=== PATIENT | male | born 1995 | race Caucasian/White ===

== ENCOUNTER 2016-11-28 20:01 | Emergency (ER) | payer OTHER ==
[~2016-11-28] VITALS: Ht 177.8 cm; Wt 141.2 kg
[~2016-11-28 20:01] MED LIST: DENIES
[2016-11-28 20:15] VITALS: Ht 177.8 cm; Wt 141.2 kg
--- NOTE | 2016-11-28 21:28 | ERD ---
ER Documentation Chief Complaint Date/Time DATE: 11/28/16 TIME: 21:26 Chief Complaint congestion, head fullness, ear pain few days HPI 21 y/o male presents to ED for multiple complaints including headache, ear pain , chest discomfort, productive cough and congestion for about 4 days. Reports that he felt like he had a fever last night but he did not take his temperature. Denies that this is the worst headache of his life, head trauma, loss of consciousness, dizziness, blurry vision, changes in vision, photophobia, facial pain, ear pain, throat pain, difficulty swallowing, neck pain, shoulder pain, hemoptysis, abdominal pain, back pain, loss of appetite, nausea, vomiting, hematochezia, diarrhea, constipation, urinary symptoms, bladder and bowel incontinences, extremity weakness, extremity tenderness, numbness or tingling sensation, difficulty walking, recent travel, recent exposure to illness, recent antibiotic use in the last 3 months. Allergy: Penicillin. Anaphylactic reaction. PMH: Asthma. Medications: Not taking any medications at this time. Surgery: Denies. Family history: Denies family history of cardiac disease, sudden before the age of 50, heart attack before the age of 50, stroke, hypertension, high cholesterol. 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 Smokes medical marijuana. Stated that the last time he smoked was about a month ago. Denies smoking, use of alcohol, use of illegal drugs. ROS All systems reviewed and are negative except as per history of present illness. Medications Home Meds Active Scripts Albuterol Sulfate* (Proair HFA*) 8.5 Gm Hfa.aer.ad, 2 PUFF INH Q4, #1 INHALER Prov:LINDSEY PATTERSON 11/28/16 Azithromycin* (Zithromax*) 250 Mg Tablet, 250 MG PO .ZPACK DIRECTED, #6 TAB TAKE 500 MG (2 TABS) THE FIRST DAY THEN 250 MG (1 TAB) DAYS 2-5 Prov:LINDSEY PATTERSON 11/28/16 Reported Medications [Denies] No Conflict Check 10/31/09 Allergies Allergies: Coded Allergies: Penicillins (Verified Allergy, Mild, 10/31/09) PMhx/Soc Medical and Surgical Hx: pt denies Medical Hx, pt denies Surgical Hx History of Surgery: No Hx Neurological Disorder: No Hx Respiratory Disorders: No Hx Cardiac Disorders: No Hx Psychiatric Problems: No Hx Miscellaneous Medical Probl: No Hx Alcohol Use: No Hx Substance Use: Yes (OCCASIONAL MARIJUANA) Hx Tobacco Use: No Smoking Status: Never smoker Physical Exam Vitals Vital Signs Date Time Temp Pulse Resp B/P Pulse Ox O2 Delivery O2 Flow Rate FiO2 11/28/16 23:06 98.2 75 20 167/98 94 Room Air 11/28/16 20:15 98.3 98 16 181/81 97 Physical Exam CONSTITUTIONAL: Well-appearing; well-nourished; in no apparent distress. HEAD: Normocephalic; atraumatic. EYES: Conjunctiva clear, sclera non-icteric, EOM intact. PERRL Ears: Hearing intact. EACs clear, TMs non-bulging, non-inflamed, translucent & mobile, ossicles normal appearance, No obstructions, no erythema, no discharges Nose: No obstructions. No polyps. No external lesions. Mucosa inflamed. No external lesions, septum and turbinates normal. No rhinorrhea. No discharges. Frontal sinus is tender to palpation. Maxillary sinus is tender to palpation. MOUTH: Moist mucous membranes, no lesion, no obstructions, no vesicles, no thrush, patent airway Throat: Uvula in midline. Right tonsil is +1 with no erythema, no exudate. Left tonsil is +1 with no erythema, no exudate. Tolerating secretions well. Good gag reflex. Patent airway. Neck: Supple, without lesions, bruits, or adenopathy. No mass. Thyroid non- enlarged and non-tender to palpation. CHEST: Symmetrical chest. Respirations even and not labored. No retractions noted. CARDIOVASCULAR: Normal S1, S2. RRR. No murmurs, gallops. RESPIRATORY: Normal chest excursion with respiration; breath sounds clear and equal bilaterally; no wheezes, rhonchi, or rales. Breathing even and unlabored. Speaking in clear, full, and complete sentences w/ ease. ABDOMEN: Normal bowel sounds normal. Soft, round, non-distended, non-guarding, no tenderness, no rebound, no organomegaly, no masses, no pulsating abdominal mass. No hernia. No peritoneal signs. : No CVA tenderness. BACK: Symmetrical shoulder. Spine is midline without deformity, tenderness. No evidence of trauma or deformity. PELVIS: Stable pelvis. No evidence of trauma or deformity. MUSCULOSKELETAL: Normal gait and station. No misalignment, asymmetry, crepitation, defects, tenderness, masses, effusions, decreased range of motion, instability, atrophy or abnormal strength or tone in the head, neck, spine, ribs , pelvis or extremities. No calf tenderness. NEUROVASCULAR: Distal pulses are present. Pedal pulse are present, equal, and normal. Capillary refills are < 2 seconds. NEUROLOGIC: Alert and oriented x4. Speaks full and clear sentences. Cranial Nerves II-XII normal. Sensation to pain, touch, and proprioception normal. Grossly unremarkable. No neurologic deficits. Romberg test is negative. PSYCHOLOGICAL: The patients mood and manner are appropriate. No hallucinations , delusions. Not SI. Not HI. Has the capacity to decide for self SKIN: Normal for age and ethnicity; warm; dry; good turgor; no apparent lesions or exudates. No rashes, hives, discoloration. Intact. Procedures/MDM Examination: Please see physical examination. Disease process, medical treatment was explained to the patient and family member. They verbalized understanding and agreed with the diagnostic tests, medical treatment, and follow-up care. EKG: Normal sinus rhythm. No evidence of acute myocardial infarction. Read by Dr. Jaycee Keyes. Radiology: Chest x-ray. Impression: No evidence of acute cardiopulmonary disease. Treatment: None. Re-evaluation: Denies headache, dizziness, blurred vision, neck pain, neck stiffness, chest pain, back pain, numbness or tingling. Consultation: None. Differential diagnosis: Acute myocardial infarction versus chest wall pain versus pneumonia versus bronchitis versus sinusitis Medical decision makin21 y/o male presents to ED for multiple complaints including headache, ear pain, chest discomfort, productive cough and congestion for about 4 days. Reports that he felt like he had a fever last night but she did not take his temperature. Patient's complaint, patient's history, my physical findings, diagnostic test results are consistent with my final diagnosis of bronchitis and sinusitis. Medications prescribed are the following: Azithromycin. Pro-air. Patient and family member are made aware of the side effects and adverse reactions of the medications prescribed. Instructed on when to seek emergent and medical attention in case allergic/anaphylactic reactions or severe side effects and or adverse reactions to medications. Patient and family member verbalized understanding. Patient instructed Instructed to follow-up with his PCP in 24-48 hours. Verbalized understanding. Agreed to follow-up care. Instructed to Call 911 for chest pain, shortness of breath. Advised to come back here in ED as soon as possible for severity of symptoms which includes but not limited to: any new symptoms; shortness of breath/difficulty of breathing; cardiovascular changes; severe gastrointestinal symptoms; signs and symptoms of bleeding and or infection; signs of compartment syndrome/neurovascular changes; neurological changes/deficits. Patient and family member verbalized understanding. Upon discharge, patient is alert and oriented x 4, speaks full and clear sentences, denies pain, has no neurological deficits, has no neurovascular deficits, difficulty of breathing. Breathing even and unlabored. Lung sounds are clear to auscultation. Not in distress. Appears comfortable. Ambulatory with steady gait. Appears satisfied with care provided here in ED. Departure Diagnosis: Primary Impression: Bronchitis Additional Impressions: Sinusitis, acute frontal Recurrence: not specified as recurrent Qualified Code: J01.10 - Acute frontal sinusitis, recurrence not specified Sinusitis, acute maxillary Recurrence: not specified as recurrent Qualified Code: J01.00 - Acute maxillary sinusitis, recurrence not specified Condition: Good Additional Instructions: Follow-up with PCP in the next 24-48 hours. Patient verbalized understanding. He agreed with follow-up care. LINDSEY PATTERSON Nov 28, 2016 21:28
--- NOTE | 2016-11-28 22:27 | RADRPT ---
PROCEDURE: CHEST - 2 VIEW CLINICAL INDICATION: 21-year-old male with chest pain and cough. TECHNIQUE: AP and lateral views of the chest were performed. The images were reviewed on a PACS w orkstation. COMPARISON: None. FINDINGS: The cardiomediastinal silhouette has a normal appearance. The inferior most aspect of the right lowe r lateral chest wall is not completely visible on the frontal projection. There is no evidence for an infiltrate. The pulmonary vascularity is within normal limits. There is no evidence for pneumoth orax or pneumomediastinum. The osseous structures are intact. IMPRESSION: No evidence for active cardiopulmonary disease. .Karsten Moffett MD, MD Date Time Electronically viewed and signed by .Karsten Moffett MD, on 11/28/2016 22:27 .Poly
[2016-11-28] MEDS ORDERED: AZIT250T94 PO (22:56)
[2016-11-28] MEDS ORDERED: ALBU8.5H3 INH (22:56)
[2016-11-28 23:06] VITALS: BP 167/98; PULSE 75; RESP 20; TEMP 98.2
== END 2016-11-28 23:05 | disposition home or self-care (01) ==
LOC: FTE 20:01
DX: J20.9 Acute bronchitis, unspecified (principal); J01.80 Other acute sinusitis
CPT/HCPCS: 71020; Z7502; 93005